=== PATIENT | female | born 1980 | race Caucasian/White ===

== ENCOUNTER → 2016-04-21 | Outpatient (CLI) | payer OTHER ==
[~2016-04-21] MED LIST: AMOX500T PO; FERR325T PO; IBUP-232 PO; MACR100C2 PO; METH10TA PO; OXYC1TAB63 PO; OXYC30TA PO; SENN1TAB PO; XANA1TAB2 PO; ZANTTAB PO; [UNRECOGNIZED DRUG - CODE] PO
== END ==
LOC: HPND 09:15
PROVIDERS: ATTEND Obstetrics & Gynecology
DX: O09.522 Supervision of elderly multigravida, second trimester (principal); O09.32 Supervision of pregnancy with insufficient antenatal care, second trimester
CPT/HCPCS: 76811

== ENCOUNTER 2016-06-07 17:14 | Emergency (ER) | payer OTHER ==
[~2016-06-07 17:14] MED LIST changes: -FERR325T PO; -IBUP-232 PO; -MACR100C2 PO; -OXYC1TAB63 PO; -SENN1TAB PO; -[UNRECOGNIZED DRUG - CODE] PO
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
== END 2016-06-07 19:15 | disposition home or self-care (01) ==
LOC: HOBED 17:14
DX: O47.9 False labor, unspecified (principal); E11.9 Type 2 diabetes mellitus without complications; Z3A.39 39 weeks gestation of pregnancy
CPT/HCPCS: 82948; 84112; 99284

== ENCOUNTER 2016-06-10 06:06 | Inpatient (IN) | payer OTHER ==
[2016-06-10] VITALS (116 sets, daily range): BP systolic 89–149; BP diastolic 30–92; PULSE 58–130; RESP 1–20; TEMP 97.2–98.7; O2SAT 98–100
[~2016-06-10] VITALS: Ht 162.6 cm; Wt 93.9 kg
[2016-06-10 07:39] LABS: AUTOMATED NEUTROPHIL # 3.9 TH/MM3 (1.8-7.7); BASOPHIL % 0.3 % (0.0-2.0); EOSINOPHIL # 0.1 TH/MM3 (0-0.4); EOSINOPHIL % 0.8 % (0.0-4.0); HEMATOCRIT 29.4 % (35.0-46.0); LYMPH % 31.3 % (9.0-44.0); LYMPHOCYTE # 2.1 TH/MM3 (1.0-4.8); MEAN CELL VOLUME 79.1 FL (80.0-100.0); MEAN CORPUSCULAR HEMOGLOBIN 26.5 PG (27.0-34.0); MEAN CORPUSCULAR HGB CONC 33.4 % (32.0-36.0); NEUT % 59.6 % (16.0-70.0); PLATELET COUNT 90 TH/MM3 (150-450); RED BLOOD COUNT 3.72 MIL/MM3 (4.00-5.30); WHITE BLOOD COUNT 6.6 TH/MM3 (4.0-11.0)
[2016-06-10 07:42] LABS: HEMO FLAGS AUTO DIFF
[2016-06-10] MEDS ORDERED: [UNRECOGNIZED DRUG - CODE] PO (07:51)
[2016-06-10 08:22] LABS: BACTERIA, URINE MOD /hpf; BLOOD, URINE MOD (NEG); CALCIUM OXALATE CRYSTALS,URINE FEW /hpf; COMMENT (UR) CULTURE INDICATED; CULTURE IF INDICATED CULTURE INDICATED; GLUCOSE,URINE NEG (NEG); GRANULAR CAST, URINE 5 /lpf; KETONE, URINE TRACE mg/dL (NEG); MUCUS URINE MANY /lpf (OCC); NITRITE,URINE NEG (NEG); SQUAMOUS EPITHELIAL CELL URINE 23 /hpf (0-5); URINE COLOR DARK-YELLOW (YELLW/STRAW)
[2016-06-10 08:29] LABS: PLATELET ESTIMATE SMEAR LOW (NORMAL); PLATELET MORPHOLOGY ENLARGED (NORMAL); SCAN/DIFF AUTO DIFF CONFIRMED
[2016-06-10] MEDS ORDERED: LACTATED RINGER'S 1000 ML INJ 1,000 ML IV PRN (08:29)
[2016-06-10] MEDS ORDERED: LIDOCAINE HCL 1% 50 ML VIAL I-DERMAL PRN (08:30)
[2016-06-10] MEDS ORDERED: OXYTOCIN 30 UNITS-500ML PREMIX 500 ML IV ONE (08:30)
[2016-06-10] MEDS ORDERED: CITRIC ACID-SODIUM CITRATE LIQ 30 ML UDC PO SCH (08:30)
[2016-06-10] MEDS ORDERED: PENICILLIN G POTASSIUM INJ 5,000,000 UNITS in SODIUM CHLORIDE 0.9% INJ 100 ML IV ONE (08:30)
[2016-06-10] MEDS ORDERED: SODIUM CHLORID 0.9% 500 ML INJ 500 ML IV PRN (08:30)
[2016-06-10] MEDS ORDERED: LIDOCAINE HCL 1% 50 ML VIAL INFIL PRN (08:30)
[2016-06-10] MEDS ORDERED: OXYTOCIN 30 UNITS-500ML PREMIX 500 ML IV SCH (08:30)
[2016-06-10] MEDS ORDERED: MINERAL OIL 10 ML VIAL TOPICAL PRN (08:30)
--- NOTE | 2016-06-10 08:48 | HHI.HP ---
HPI Chief Complaint induction of labor Date Seen: June 10, 2016 (Bolivar Carreno MD R2) Travel History International Travel<30 Days: No Contact w/Intl Traveler<30Days: No (Bolivar Carreno MD R2) History of Present Illness HPI Ms. Salinas is a 35-year-old at 39 6/7 weeks (LUIS 06/11/2016) presents for induction of labor. Patient denies symptoms such as headache, visual changes, shortness of breath, chest pain, lack of movement, vaginal bleeding, rupture of membranes. Review of records: GBS positive. Concern for gestational diabetes; patient failed one-hour glucose testing; did not obtain 3 hour testing. Patient on chronic opiate pain control during : Oxycodone 15 mg 3 times a day, methadone 20 mg daily. Patient also on Xanax 1 mg daily. Patient evaluated by MFM; recommended delivery between 3940 weeks. ultrasounds: US at 23 weeks' demonstrated head circumference below 5th percentile. Last BPP 11/1606/08/2016. Patient states that she has previously been diagnosed with colonic with diabetes prior to ; she is not on any current medications. Para: 2 : 5 : 2 (Bolivar Carreno MD R2) History Past Medical History Narrative Medical Chronic pain secondary to degenerative disc disease and arthritis on chronic opiate therapy- patient takes 15 mg oxycodone 3 times a day, 20 mg methadone daily Prior substance abuse Gestational diabetes with current gestation vs chronic diabetes Benzodiazepine usage-1 mg Xanax at night (Bolivar Carreno MD R2) Obstetric History Obstetric History 2 vaginal deliveries at 37 weeks gestation 19 and 22 years ago Patient reports prior gestational complications of preeclampsia and gestational diabetes (Bolivar Carreno MD R2) Past Surgical History Narrative Surgical [place] teeth removal (Bolivar Carreno MD R2) Family History Narrative Family History MotherCVA (Bolivar Carreno MD R2) Social History Narrative Social History Patient reports cocaine addiction 10 years ago that she has not used recently Alcohol Use: No Tobacco Use: No Substance Abuse: No (Bolivar Carreno MD R2) Allergies-Medications (Allergen,Severity, Reaction): Coded Allergies: No Known Allergies (Verified , 06/10/16) Uncoded Allergies: NONE (Allergy, Unknown, 10/15/02) Home Meds Reported Medications Vit W/ Docusate-Iron (Inatal Advance)1 Tab Tab1 Tab PO DAILY 06/10/16 Alprazolam (Xanax)1 Mg Tab1 Mg PO BID PRN (ANXIETY) 30 Days Ref 0 04/14/16 Methadone 10 Mg Tab10 Mg PO DAILY Ref 0 02/16/16 Oxycodone 30 Mg Tab30 Mg PO Q6H PRN (PAIN) Ref 0 02/16/16 Ranitidine (Zantac 150 Maximum Strength)150 Mg [id number] Mg PO BID 02/16/16 Discontinued Scripts Amoxicillin 500 Mg [id number] Mg PO TID #21 TAB Ref 0 Prov:Varun Hill MD 05/26/16 Review of Systems General / Constitutional: No: Fever, Chills HENT: No: Headaches Cardiovascular: No: Chest Pain or Discomfort Respiratory: No: Short of Breath Gastrointestinal: No: Nausea, Vomiting, Abdominal Pain Genitourinary: No: Dysuria (Bolivar Carreno MD R2) Physical Exam Vital Signs Date Time Temp Pulse Resp B/P Pulse Ox O2 Delivery O2 Flow Rate FiO2 06/10/16 07:30 98.4 06/10/16 07:30 73 124/70 06/10/16 07:30 19 Narrative GENERAL: Well-nourished, well-developed patient. SKIN: Warm and dry. HEAD: Normocephalic and atraumatic. EYES: No scleral icterus. No injection or drainage. ENT: No nasal drainage noted. Mucous membranes pink. Airway patent. NECK: Supple, trachea midline. No JVD. CARDIOVASCULAR: Regular rate and rhythm without murmurs, gallops, or rubs. RESPIRATORY: CTA B, normal rate ABDOMEN/GI: Abdomen soft, non-tender, bowel sounds present, no rebound, no guarding Gravid EXTREMITIES: No cyanosis or edema. NEUROLOGICAL: Awake and alert. Motor and sensory function grossly within normal limits. GENITOURINARY: External Genitalia: intact and normal in appearance Cervix: Dilatation: 3-4cm Effacement: 50-60% Station: soft Presentation: Vertex Membranes: Intact Uterine Contractions: Irritability FHT's: Category: 1 Baseline: 130 Reactive: Y Variability: Moderate Decels: None (Bolivar Carreno MD R2) Data Data Vital Signs Reviewed: Yes Orders Code Status (06/10/16 07:11) Vital Signs (Adult) .Per protocol (06/10/16 07:11) Heart (06/10/16 07:11) Amnioinfusion (06/10/16 07:11) Urinary Catheter Management .ONCE (06/10/16 07:11) Complete Blood Count With Diff (06/10/16 07:11) Hold Clot (06/10/16 07:11) Abo/Rh Blood Type (06/10/16 07:11) Urinalysis - C+S If Indicated (06/10/16 07:11) Resp Oxygen Non Rebreathe Mask (06/10/16 ) ^ Epidural / Intrathecal Infus (06/10/16 07:11) Specimen To Be Collected PRN (06/10/16 07:11) ^ Non Stress Test (06/10/16 07:19) Response To Medication .Post New Med Administration, Reaction (06/10/16 07:19) ^ Discontinue Medication (06/10/16 07:19) Urine Culture (06/10/16 06:40) Labs Laboratory Tests Test 06/10/16 06:40 White Blood Count 6.6 Red Blood Count 3.72 Hemoglobin 9.8 Hematocrit 29.4 Mean Corpuscular Volume 79.1 Mean Corpuscular Hemoglobin 26.5 Mean Corpuscular Hemoglobin 33.4 Concent Red Cell Distribution Width 14.0 Platelet Count 90 Mean Platelet Volume 11.3 Neutrophils (%) (Auto) 59.6 Lymphocytes (%) (Auto) 31.3 Monocytes (%) (Auto) 8.0 Eosinophils (%) (Auto) 0.8 Basophils (%) (Auto) 0.3 Neutrophils # (Auto) 3.9 Lymphocytes # (Auto) 2.1 Monocytes # (Auto) 0.5 Eosinophils # (Auto) 0.1 Basophils # (Auto) 0.0 CBC Comment AUTO DIFF Differential Comment AUTO DIFF CONFIRMED Platelet Estimate LOW Platelet Morphology Comment ENLARGED Urine Color DARK-YELLOW Urine Turbidity CLOUDY Urine pH 6.0 Urine Specific [place] 1.045 Urine Protein 30 Urine Glucose (UA) NEG Urine Ketones TRACE Urine Occult Blood MOD Urine Nitrite NEG Urine Bilirubin NEG Urine Urobilinogen 2.0 Urine Leukocyte Esterase MOD Urine RBC 3 Urine WBC 8 Urine Squamous Epithelial 23 Cells Urine Calcium Oxalate Crystals FEW Urine Bacteria MOD Urine Granular Casts 5 Urine Mucus MANY Microscopic Urinalysis Comment CULTURE INDICATED Blood Type O POSITIVE Blood Bank Comment Band and Hold Date/Time Procedure Status Source Growth 06/10/16 06:40 Urine Culture Received Urine Clean Catch Pending (Bolivar Carreno MD R2) Assessment/Plan Problem List: (1) 39 weeks gestation of (2) Chronic prescription opiate use Assessment and Plan 35-year-old at 39 6/7 weeks (LUIS 06/11/2016) presents for induction of labor -Chronic opiate and benzodiazepine use during -Mild thrombocytopenia with platelets less than 100 K during -Concern for gestational diabetes/chronic diabetes -GBS positive -Category 1 rhythm -Cervix %/-3 Plan: -Will initiate induction of labor with Pitocin -We'll obtain CBC/UA/blood typing -Will initiate GBS prophylaxis -We'll continue patient's chronic opiate medications/benzodiazepine to avoid withdrawal and notify providers (Bolivar Carreno MD R2) Collaborating MD Comments agree with management plan GBS prophylaxis followed by AROM/pitocin (Millie Chiang MD) Bolivar Carreno MD R2 June 10, 2016 08:48 Millie Chiang MD June 10, 2016 08:54
[2016-06-10] MEDS ORDERED: SODIUM CHLOR 0.9% 1000 ML INJ 1,000 ML IV PRN (08:49)
[2016-06-10] MEDS: LACTATED RINGER'S 1000 ML INJ 1,000 ML IV SCH ×2 (08:59→16:52)
--- NOTE | 2016-06-10 11:25 | PD.LABORPN ---
Subjective Subjective AROM clear , cx 4 50./-3 / vtx FSE inserted , could not get the IUPC in begin sep Objective Vital Signs Vital Signs Date Time Temp Pulse Resp B/P Pulse Ox O2 Delivery O2 Flow Rate FiO2 06/10/16 11:00 72 124/66 06/10/16 10:30 70 105/51 06/10/16 10:00 77 118/66 06/10/16 09:30 132/71 06/10/16 09:30 69 06/10/16 09:27 18 06/10/16 08:30 18 06/10/16 07:30 98.4 06/10/16 07:30 73 124/70 06/10/16 07:30 19 Objective Pelvic Exam: Cervix: [-] Dilatation: [-4] Effacement: [-50] Station: [-3] Presentation: [vtx-] Membranes: ruptured] Uterine Contractions: [-irreg] FHT's: Category: [1-] Baseline: [144-] Reactive: [-yes] Variability: [mod-] Assessment/Plan Problem List: (1) 39 weeks gestation of (2) Chronic prescription opiate use Assessment and Plan continue labor management ., sep prn Alonzo Garza II, MD June 10, 2016 11:25
[2016-06-10] MEDS: PENICILLIN G POTASSIUM INJ 2,500,000 UNITS in SODIUM CHLORIDE 0.9% INJ 100 ML IV SCH ×2 (12:45→16:19)
[2016-06-10] MEDS ORDERED: fentaNYL 2MCG-BUPIV 0.125% INJ 100 ML ONE (15:23)
[2016-06-10] MEDS ORDERED: ePHEDrine/NS 25 MG/5 ML SYR ONE (15:23)
[2016-06-10] MEDS ORDERED: ePHEDrine/NS 25 MG/5 ML SYR IV PRN (16:30)
[2016-06-10] MEDS ORDERED: DO NOT ADMINISTER ANTICOAGULANTS PRN (16:30)
[2016-06-10] MEDS ORDERED: NO SYSTEM NARCOTICS PRN (16:30)
[2016-06-10 16:48] LABS: AMPHETAMINE, URINE NEG (NEG); BARBITURATES, URINE NEG (NEG); COCAINE, URINE NEG (NEG)
[2016-06-10 20:59] LABS: BLOOD GAS BASE EXCESS -0.3 mmol/L (-2-2); BLOOD GAS O2 HGB SATURATION 3 % (90-100); CORD BLOOD GAS HCO3 26 mmol/L (21-29); CORD BLOOD GAS PCO2 65 mmHG (34-78); CORD BLOOD GAS PH 7.24 (7.14-7.42); CORD BLOOD GAS PO2 4 mmHG (3.0-40.0); DRAW SITE CORD BLOOD; STAT YES
[2016-06-10] MEDS ORDERED: SODIUM CHLORIDE 0.9% FLUSH 10 ML FLUSH IV FLUSH PRN (21:30)
[2016-06-10] MEDS ORDERED: oxyCODONE/ACETAMINOPHEN 5 MG/325 MG TAB PO PRN (21:30)
[2016-06-10] MEDS ORDERED: ZOLPIDEM TARTRATE 5 MG TAB PO PRN (21:30)
[2016-06-10] MEDS ORDERED: BENZOCAINE 20% TOPICAL SPRAY 60 ML CAN TOPICAL PRN (21:30)
[2016-06-10] MEDS ORDERED: WITCH HAZEL 50%/GLYCERIN 12.5% 40 PAD JAR TOPICAL PRN (21:30)
[2016-06-10] MEDS ORDERED: ALUMINUM/MAGNESIUM/SIMETH 30 ML CUP PO PRN (21:30)
[2016-06-10] MEDS ORDERED: ACETAMINOPHEN 325 MG TAB PO PRN (21:30)
[2016-06-10] MEDS ORDERED: ONDANSETRON ODT 4 MG TAB PO PRN (21:30)
--- NOTE | 2016-06-10 21:33 | PD.OB.DELI ---
Anesthesia: Epidural Episiotomy: Midline Vaginal Delivery: Spontaneous Presentation: Occiput anterior Nuchal Cord: x1 Delayed cord clamping (45 sec): No Shoulder Dystocia: Suprapubic pressure given, Layne maneuver done, Wood's screw maneuver done, Other : Male One Minute : 2 Five Minute : 5 Ten Minute : 8 Weight: 4085 gm [9 lb] Placenta: Spontaneous delivery, Intact Laceration: Episiotomy, 4 deg, Involving anal sphincter, Into rectum Repair: Chromic running, Vicryl interrupted, Vicryl running Additional Information this pt is a multipara at 39-40 wks with gestational diabetes who in the second stage of labor pushed only a brief amount of time, however was really having a difficult time getting the head to completely deliver out on the perineum. And once that the head did deliver, it was very obvious that there was a shoulder dystocia, with left shoulder being underneath the symphysis ,Mc Campo maneuver used and suprapubic pressure given by the nurses, initial traction on the head of was unsuccessful and was not severe was a fairly medium to moderate tension, when that was unsuccessful, I cut a second-degree episiotomy and used my of right hand to reach for the posterior arm to try and deliver that . I was able to get to the posterior arm and move the arm and posterior shoulder forward toward the perineum approximally 2 centimeters and once that was done I tried a another traction on the head gently rolling the shoulders to the patient's left in a wood screw maneuver to pull the anterior shoulder, that was behind the symphysis, off the vertical midline and then it delivered under the symphysis with suprapubic pressure delivered at that time and once the anterior shoulder deliver the baby delivered very easily. 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 Adequate and complete repair noted, EBL 300 cc Alonzo Garza II, MD June 10, 2016 21:33
[2016-06-11] VITALS (53 sets, daily range): BP systolic 94–135; BP diastolic 47–73; PULSE 72–112; RESP 16–19; TEMP 98–98.8; O2SAT 99–100
[2016-06-11] MEDS: LACTATED RINGER'S 1000 ML INJ 1,000 ML IV SCH (00:29)
[2016-06-11 01:11] LABS: REVIEW FLAG FINAL
[2016-06-11] MEDS: DOCUSATE SODIUM 50 MG/SENNA 8.6 MG TAB PO PRN ×2 (07:37→20:17)
[2016-06-11] MEDS ORDERED: SODIUM CHLORIDE 0.9% FLUSH 10 ML FLUSH IV FLUSH SCH (09:00)
[2016-06-11] MEDS ORDERED: oxyCODONE/ACETAMINOPHEN 5 MG/325 MG TAB PO PRN (09:00)
[2016-06-11] MEDS: IBUPROFEN 600 MG TAB PO PRN ×2 (09:20→16:56)
--- NOTE | 2016-06-11 09:25 | HHI.OB ---
Subjective Post Day: 1 Remarks Ms. Salinas is a 35 yo who is PPD1 from induced vaginal delivery (06/10 at 5) . Patient afebrile with stable VS (occ mild tachycardia) overnight. Per review of delivery records, delivery complicated by shoulder dystocia; episiotomy required for delivery of . Hgb 6. Patient reports fatigue but that she feels better as she is receiving blood transfusion. Patient has not ambulated since delivery. Patient has catheter in place. Patient reports a large amount of abdominal pain. Objective Vitals/I&O Vital Signs Date Time Temp Pulse Resp B/P Pulse Ox O2 Delivery O2 Flow Rate FiO2 06/11/16 08:30 18 06/11/16 08:00 18 06/11/16 07:30 103 100 06/11/16 07:25 97 100 06/11/16 07:20 99 100 06/11/16 07:15 95 100 06/11/16 07:15 98.7 18 06/11/16 07:10 100 06/11/16 07:10 100 06/11/16 07:05 100 06/11/16 07:05 101 06/11/16 07:02 110/68 06/11/16 07:02 95 06/11/16 07:02 98.4 103 18 110/68 100 06/11/16 07:00 105 99 06/11/16 06:55 101 99 06/11/16 06:47 98.8 100 18 124/68 99 06/11/16 06:46 124/68 06/11/16 06:45 18 06/11/16 06:40 103 100 06/11/16 06:35 98.6 109 18 107/73 100 06/11/16 06:35 107/73 06/11/16 06:25 103 100 06/11/16 06:20 104 100 06/11/16 06:15 100 100 06/11/16 06:10 92 100 06/11/16 06:05 95 100 06/11/16 06:00 97 100 06/11/16 05:50 100 100 06/11/16 05:48 18 06/11/16 05:48 98.0 06/11/16 05:47 99 127/66 06/11/16 05:45 100 06/11/16 05:45 18 06/11/16 05:40 100 17 05:40 102 17 05:30 124/62 17 04:40 112 100 17 04:35 96 100 06/11/16 04:30 96 100 17 04:25 98 100 06/11/16 04:20 103 100 06/11/16 04:15 18 06/11/16 04:15 104 100 06/11/16 04:13 97 110/60 06/11/16 04:12 98.2 98 18 110/60 100 06/11/16 04:10 107 100 06/11/16 04:05 111 100 06/11/16 03:55 109 100 06/11/16 03:45 98.4 18 06/11/16 03:38 98 116/62 06/11/16 03:38 98.4 101 18 116/62 99 06/11/16 03:00 18 06/11/16 02:59 105 135/61 06/11/16 01:06 112 106/47 06/11/16 00:03 90 18 107/54 06/11/16 00:00 95 100 06/11/16 00:00 95 94/53 06/10/16 23:55 100 06/10/16 23:55 105 06/10/16 23:49 18 06/10/16 23:45 91 105/54 100 06/10/16 23:41 18 06/10/16 23:40 99 100 06/10/16 23:35 114 100 06/10/16 23:30 91 116/57 100 06/10/16 23:27 18 06/10/16 23:25 113 100 17 23:15 89 115/63 100 06/10/16 23:10 89 100 06/10/16 23:05 108 100 06/10/16 23:03 97.8 06/10/16 23:01 18 06/10/16 23:00 94 100 06/10/16 23:00 101/66 17 22:57 74 106/45 17 22:55 100 17 22:50 86 98 17 22:47 18 17 22:45 86 98 06/10/16 22:45 101/46 06/10/16 22:42 79 102/48 06/10/16 22:41 18 06/10/16 22:40 86 101/45 100 06/10/16 22:30 82 18 89/45 100 06/10/16 22:29 82 89/49 06/10/16 22:25 77 100 06/10/16 22:23 97/46 06/10/16 22:15 97/49 06/10/16 22:10 100 06/10/16 22:08 18 06/10/16 22:07 74 92/45 06/10/16 22:05 89/41 06/10/16 22:05 97.5 06/10/16 22:00 74 97/42 06/10/16 21:56 18 06/10/16 21:55 94 99 06/10/16 21:45 103 103/59 06/10/16 21:40 109 100 06/10/16 21:35 77 100 06/10/16 21:33 1 06/10/16 21:33 18 06/10/16 21:31 78 107/35 06/10/16 21:29 97.2 06/10/16 21:29 18 06/10/16 21:25 100 06/10/16 21:25 58 06/10/16 21:23 108/48 06/10/16 21:15 18 06/10/16 21:05 78 97/45 06/10/16 20:55 20 06/10/16 20:54 72 103/52 06/10/16 20:53 97.9 06/10/16 19:40 76 06/10/16 19:30 121/65 06/10/16 19:10 67 06/10/16 19:06 98.0 18 06/10/16 19:05 74 06/10/16 19:00 116/61 06/10/16 19:00 62 06/10/16 18:35 77 06/10/16 18:31 68 94/47 06/10/16 18:30 69 06/10/16 18:10 69 06/10/16 18:05 69 06/10/16 18:00 66 116/77 06/10/16 18:00 62 06/10/16 17:55 68 06/10/16 17:40 68 06/10/16 17:35 70 5/4/17 17:30 98.4 18 06/10/16 17:30 61 06/10/16 17:30 66 103/52 06/10/16 17:25 71 06/10/16 17:20 74 06/10/16 17:15 65 06/10/16 17:15 67 107/56 06/10/16 17:10 68 06/10/16 17:00 78 119/67 06/10/16 17:00 65 06/10/16 16:55 71 06/10/16 16:45 71 120/60 06/10/16 16:45 73 06/10/16 16:40 74 06/10/16 16:35 80 06/10/16 16:31 76 116/57 06/10/16 16:30 18 06/10/16 16:30 78 06/10/16 16:25 88 06/10/16 16:20 80 06/10/16 16:16 79 103/49 06/10/16 16:15 75 06/10/16 16:12 130 105/30 06/10/16 16:10 82 115/62 06/10/16 16:10 82 06/10/16 16:07 79 103/43 06/10/16 16:05 73 06/10/16 16:03 85 116/72 06/10/16 16:01 69 101/55 06/10/16 16:00 79 06/10/16 16:00 18 06/10/16 15:57 94 89/74 06/10/16 15:55 79 06/10/16 15:54 87 120/55 06/10/16 15:51 82 128/72 06/10/16 15:50 86 06/10/16 15:48 84 124/61 06/10/16 15:45 76 06/10/16 15:45 94 127/59 06/10/16 15:42 109 119/76 06/10/16 15:40 87 06/10/16 15:39 92 119/67 06/10/16 15:36 95 133/81 06/10/16 15:35 90 06/10/16 15:33 91 124/64 06/10/16 15:30 98.4 06/10/16 15:30 20 06/10/16 15:30 84 109/72 5/4/17 15:30 18 06/10/16 15:10 20 06/10/16 15:00 94 127/53 06/10/16 14:30 84 149/92 06/10/16 14:30 19 06/10/16 14:00 70 135/75 06/10/16 13:30 20 06/10/16 13:30 98.7 06/10/16 13:00 78 134/79 06/10/16 13:00 78 134/79 06/10/16 13:00 78 134/79 06/10/16 12:30 18 06/10/16 12:30 78 102/58 06/10/16 12:00 82 123/67 06/10/16 11:30 97.5 06/10/16 11:30 82 139/81 06/10/16 11:29 20 06/10/16 11:00 72 124/66 06/10/16 10:30 18 06/10/16 10:30 70 105/51 06/10/16 10:00 77 118/66 06/10/16 09:30 132/71 06/10/16 09:30 69 06/10/16 09:27 18 Objective Remarks GENERAL: Well-nourished, well-developed patient. CARDIOVASCULAR: Regular rate and rhythm without murmurs. Normal perfusion RESPIRATORY:CTAB, normal rate ABDOMEN/GI: Abdomen soft, non-tender. Fundus: Firm, non-tender at umbilicus. GENITOURINARY: Light to moderate bleeding. Catheter in place EXTREMITIES: No cyanosis or edema, non-tender, without signs of DVT. Medications and IVs Current Medications Medications (Trade) Dose Ordered Sig/Bri Route Start Time Stop Time Status Last Admin Lactated Ringer's 1,000 ml @ 125 mls/hr Q8H IV 06/10/16 08:29 06/11/16 00:29 Lactated Ringer's 1,000 ml @ 3,000 mls/hr Q20M PRN IV 06/10/16 08:29 06/10/16 16:52 Sodium Chloride 1,000 ml @ 100 mls/hr Q10H PRN IV 06/10/16 08:49 (Pfizerpen-G Inj/ NS Inj) 100 ml @ 200 mls/hr Q4H IV 06/10/16 12:30 06/10/16 16:19 Mineral Oil 10 ml 10 ml UNSCH PRN TOPICAL 06/10/16 08:30 (Pitocin 30 Units-NS 500 ml Premix) 500 ml @ 0 mls/hr TITRATE IV 06/10/16 08:30 06/10/16 09:34 Miscellaneous Information No systemic narcotics to be given except... UNSCH PRN .XX 06/10/16 16:30 06/11/16 16:29 Miscellaneous Information DO NOT ADMINISTER ANY ANTICOAGUL... UNSCH PRN .XX 06/10/16 16:30 06/11/16 16:29 (ePHEDrine/NS 25 MG/5 ML SYR) 10 mg UNSCH PRN IV 06/10/16 16:30 06/11/16 16:29 (NS Flush) 2 ml BID IV FLUSH 06/11/16 09:00 (NS Flush) 2 ml UNSCH PRN IV FLUSH 06/10/16 21:30 (Motrin) 600 mg Q6H PRN PO 06/10/16 21:30 (Americaine 20% Top Spr) 1 spray Q4H PRN TOPICAL 06/10/16 21:30 06/11/16 03:14 (Tucks Pads) 1 applic QID PRN TOPICAL 06/10/16 21:30 06/11/16 03:14 (Debi-Colace) 2 tab Q12H PRN PO 06/10/16 21:30 06/11/16 07:37 (Ambien) 5 mg HS PRN PO 06/10/16 21:30 (Mag-Al Plus Susp Liq) 15 ml Q8H PRN PO 06/10/16 21:30 (Zofran Odt) 4 mg Q6H PRN PO 06/10/16 21:30 (fentaNYL INJ) 50 mcg Q3HR PRN IV PUSH 06/11/16 08:15 (Percocet 5-325 Mg) 1 tab Q4H PRN PO 06/11/16 09:00 (Percocet 5-325 Mg) 2 tab Q4H PRN PO 06/11/16 10:00 Assessment/Plan Problem List: (1) 39 weeks gestation of (2) Chronic prescription opiate use (3) care and examination Assessment and Plan 35 yo who is PPD1 from induced vaginal delivery (06/10 at 2034) Routine care Continue to monitor vital signs, vaginal bleeding Encourage ambulation When necessary Motrin/Percocet Stool softener as needed Anemia Impression: Hgb 9.8 prior to delivery. Patient with mild thrombocytopenia. Episiotomy required for delivery. Post delivery Hgb 6 -continue transfusion of 2 U pRBC -Plan to check post transfusion H&H Urinary function Impression: Patient with catheter in place. Urine on admission suggestive of possible UTI. -Plan to remove catheter posttransfusion and monitor output -Follow urine culture Thrombocytopenia Impression: Mild, PLT count 90k. -Continue to monitor vaginal bleeding Chronic opiate/benzodiazepine therapy Impression: nursery staff aware. UDS+ for benzodiazepines -Will plan to treat pain accordingly and continue patient's benzodiazepine Discharge Planning anticipate discharge tomorrow Bolivar Carreno MD R2 June 11, 2016 09:25
[2016-06-11] MEDS: oxyCODONE/ACETAMINOPHEN 5 MG/325 MG TAB PO PRN ×3 (09:26→20:17)
[2016-06-11] MEDS ORDERED: LIDOCAINE 2% JELLY 30 ML TUBE TOPICAL PRN (10:00)
[2016-06-11 16:17] LABS: HEMATOCRIT 25.6 % (35.0-46.0)
[2016-06-11 16:19] LABS: REVIEW FLAG FINAL
[2016-06-12] MEDS: IBUPROFEN 600 MG TAB PO PRN ×3 (00:37→18:33)
[2016-06-12] MEDS: oxyCODONE/ACETAMINOPHEN 5 MG/325 MG TAB PO PRN ×5 (00:37→21:54)
[2016-06-12] MEDS: DOCUSATE SODIUM 50 MG/SENNA 8.6 MG TAB PO PRN (07:49)
[2016-06-12 07:50] VITALS: BP 116/80; PULSE 76; RESP 18; TEMP 98.3
--- NOTE | 2016-06-12 09:01 | HHI.OB ---
Subjective Post Day: 2 Remarks Ms. Salinas is a 35 yo who is PPD2 from induced vaginal delivery (06/10 at 2034) . Patient afebrile with stable VS overnight. Patient reports that she is pumping breast milk at this time and requests bus info consultant assistance. Patient reports continued dizziness when standing. Patient states her pain is controlled. Patient passing gas. Patient reports that her murray was removed last night; she states that she is concerned regarding possibly having urinary tract infection. (Bolivar Carreno MD R2) Objective Vitals/I&O Vital Signs Date Time Temp Pulse Resp B/P Pulse Ox O2 Delivery O2 Flow Rate FiO2 06/11/16 19:50 98.4 72 16 125/70 06/11/16 11:15 98.5 95 18 06/11/16 11:15 120/73 06/11/16 09:52 98.6 06/11/16 09:51 19 06/11/16 09:50 98.6 94 19 120/58 100 06/11/16 09:48 94 120/58 06/11/16 09:30 19 Objective Remarks GENERAL: Well-nourished, well-developed patient. CARDIOVASCULAR: Regular rate and rhythm without murmurs. Normal perfusion RESPIRATORY:CTAB, normal rate ABDOMEN/GI: Abdomen soft, non-tender. Fundus: Firm, non-tender at umbilicus. GENITOURINARY: Light to moderate bleeding. EXTREMITIES: No cyanosis or edema, non-tender, without signs of DVT. Medications and IVs Current Medications Medications (Trade) Dose Ordered Sig/Bri Route Start Time Stop Time Status Last Admin Lactated Ringer's 1,000 ml @ 125 mls/hr Q8H IV 06/10/16 08:29 06/11/16 00:29 Lactated Ringer's 1,000 ml @ 3,000 mls/hr Q20M PRN IV 06/10/16 08:29 06/10/16 16:52 Sodium Chloride 1,000 ml @ 100 mls/hr Q10H PRN IV 06/10/16 08:49 (Pfizerpen-G Inj/ NS Inj) 100 ml @ 200 mls/hr Q4H IV 06/10/16 12:30 06/10/16 16:19 Mineral Oil 10 ml 10 ml UNSCH PRN TOPICAL 06/10/16 08:30 (Pitocin 30 Units-NS 500 ml Premix) 500 ml @ 0 mls/hr TITRATE IV 06/10/16 08:30 06/10/16 09:34 (NS Flush) 2 ml BID IV FLUSH 06/11/16 09:00 (NS Flush) 2 ml UNSCH PRN IV FLUSH 06/10/16 21:30 (Motrin) 600 mg Q6H PRN PO 06/10/16 21:30 06/12/16 00:37 (Americaine 20% Top Spr) 1 spray Q4H PRN TOPICAL 06/10/16 21:30 06/11/16 03:14 (Tucks Pads) 1 applic QID PRN TOPICAL 06/10/16 21:30 06/11/16 03:14 (Debi-Colace) 2 tab Q12H PRN PO 06/10/16 21:30 06/12/16 07:49 (Ambien) 5 mg HS PRN PO 06/10/16 21:30 (Mag-Al Plus Susp Liq) 15 ml Q8H PRN PO 06/10/16 21:30 (Zofran Odt) 4 mg Q6H PRN PO 06/10/16 21:30 (fentaNYL INJ) 50 mcg Q3HR PRN IV PUSH 06/11/16 08:15 06/12/16 08:37 (Percocet 5-325 Mg) 1 tab Q4H PRN PO 06/11/16 09:00 (Percocet 5-325 Mg) 2 tab Q4H PRN PO 06/11/16 10:00 06/12/16 08:37 (Bolivar Carreno MD R2) Assessment/Plan Problem List: (1) 39 weeks gestation of (2) Chronic prescription opiate use (3) care and examination Assessment and Plan 35 yo who is PPD2 from induced vaginal delivery (06/10 at 5) Routine care Continue to monitor vital signs, vaginal bleeding Encourage ambulation When necessary Motrin/Percocet Stool softener as needed Anemia Impression: Hgb 9.8 prior to delivery. Patient with mild thrombocytopenia. Episiotomy required for delivery. Post delivery Hgb 6-> 8 after 2 U pRBC -Monitor vaginal bleeding at this time -Ferrous sulfate 325mg BID UTI Impression: Gram - silvio in urine culture. Patient recently with [facility] Catheter -Will start Macrobid 100mg BID x1 week Thrombocytopenia Impression: Mild, PLT count 90k. -Continue to monitor vaginal bleeding Chronic opiate/benzodiazepine therapy Impression: [facility] staff aware. UDS+ for benzodiazepines -continue patient's benzodiazepine Discharge Planning anticipate discharge tomorrow (Bolivar Carreno MD R2) Collaborating MD Comments Patient doing well, care has been reviewed. Stable following her blood transfusion (Millie Chiang MD) Bolivar Carreno MD R2 June 12, 2016 09:01 Millie Chiang MD June 12, 2016 09:19
[2016-06-12] MEDS: NITROFURANTOIN MONOHYD MACROCR 100 MG CAP PO SCH ×2 (11:36→18:33)
[2016-06-13] MEDS: IBUPROFEN 600 MG TAB PO PRN ×2 (01:00→07:55)
[2016-06-13] MEDS: oxyCODONE/ACETAMINOPHEN 5 MG/325 MG TAB PO PRN ×2 (04:13→07:55)
--- NOTE | 2016-06-13 08:02 | HHI.OB ---
Subjective Post Day: 3 Remarks Ms. Salinas is a 35 yo who is PPD3 from induced vaginal delivery (06/10 at 2034) . Patient afebrile with stable VS overnight. Patient states her pain is controlled. Patient reports having bowel movement; she states stool softener is helping. Patient does not report dysuria. Patient reports persistent vaginal bleeding since delivery [scant per nursing documentation]. No shortness of breath or leg swelling. Patient states she has pain management appointment next Tuesday. Patient agreeable to scheduling visit within the next several weeks. Objective Objective Remarks GENERAL: Well-nourished, well-developed patient. CARDIOVASCULAR: Regular rate and rhythm without murmurs. Normal perfusion RESPIRATORY:CTAB, normal rate ABDOMEN/GI: Abdomen soft, non-tender. Fundus: Firm, non-tender at umbilicus. GENITOURINARY: Light to moderate bleeding. EXTREMITIES: No cyanosis or edema, non-tender, without signs of DVT. Medications and IVs Current Medications Medications (Trade) Dose Ordered Sig/Bri Route Start Time Stop Time Status Last Admin Lactated Ringer's 1,000 ml @ 125 mls/hr Q8H IV 06/10/16 08:29 06/11/16 00:29 Lactated Ringer's 1,000 ml @ 3,000 mls/hr Q20M PRN IV 06/10/16 08:29 06/10/16 16:52 Sodium Chloride 1,000 ml @ 100 mls/hr Q10H PRN IV 06/10/16 08:49 (Pfizerpen-G Inj/ NS Inj) 100 ml @ 200 mls/hr Q4H IV 06/10/16 12:30 06/10/16 16:19 Mineral Oil 10 ml 10 ml UNSCH PRN TOPICAL 06/10/16 08:30 (Pitocin 30 Units-NS 500 ml Premix) 500 ml @ 0 mls/hr TITRATE IV 06/10/16 08:30 06/10/16 09:34 (NS Flush) 2 ml BID IV FLUSH 06/11/16 09:00 (NS Flush) 2 ml UNSCH PRN IV FLUSH 06/10/16 21:30 (Motrin) 600 mg Q6H PRN PO 06/10/16 21:30 06/13/16 01:00 (Americaine 20% Top Spr) 1 spray Q4H PRN TOPICAL 06/10/16 21:30 06/11/16 03:14 (Tucks Pads) 1 applic QID PRN TOPICAL 06/10/16 21:30 06/11/16 03:14 (Debi-Colace) 2 tab Q12H PRN PO 06/10/16 21:30 06/12/16 07:49 (Ambien) 5 mg HS PRN PO 06/10/16 21:30 (Mag-Al Plus Susp Liq) 15 ml Q8H PRN PO 06/10/16 21:30 (Zofran Odt) 4 mg Q6H PRN PO 06/10/16 21:30 (fentaNYL INJ) 50 mcg Q3HR PRN IV PUSH 06/11/16 08:15 06/13/16 04:13 (Percocet 5-325 Mg) 1 tab Q4H PRN PO 06/11/16 09:00 (Percocet 5-325 Mg) 2 tab Q4H PRN PO 06/11/16 10:00 06/13/16 04:13 (Macrobid) 100 mg BIDPC PO 06/12/16 10:00 06/12/16 18:33 Assessment/Plan Problem List: (1) Chronic prescription opiate use (2) care and examination Assessment and Plan 35 yo who is PPD3 from induced vaginal delivery (06/10 at 2034) Routine care Continue to monitor vital signs, vaginal bleeding Encourage ambulation When necessary Motrin/Percocet Stool softener as needed Anemia Impression: Hgb 9.8 prior to delivery. Patient with mild thrombocytopenia. Episiotomy required for delivery. Post delivery Hgb 6-> 8 after 2 U pRBC -Monitor vaginal bleeding at this time -Ferrous sulfate 325mg BID UTI Impression: Gram - silvio in urine culture. Patient recently with [facility] Catheter -Continue Macrobid 100mg BID x1 week Thrombocytopenia Impression: Mild, PLT count 90k. -Continue to monitor vaginal bleeding Chronic opiate/benzodiazepine therapy Impression: [facility] staff aware. UDS+ for benzodiazepines -Continue patient's home benzodiazepine Discharge Planning anticipate discharge today Bolivar Carreno MD R2 June 13, 2016 08:02
[2016-06-13] MEDS ORDERED: SENN1TAB PO (08:04)
[2016-06-13] MEDS ORDERED: IBUP-232 PO (08:04)
[2016-06-13] MEDS ORDERED: OXYC1TAB63 PO (08:04)
--- NOTE | 2016-06-13 08:04 | HHI.DCPOC ---
Discharge Care Plan Diagnosis: (1) Chronic prescription opiate use (2) care and examination Report Symptoms to Your Doctor -Temperate above 100.5 degrees -Redness, of incision or excessive or foul smelling drainage -Unusual pain or calf pain -Increased vaginal bleeding -Painful or difficulty urinating -Feelings of extreme sadness or anxiety after 2 weeks Goals to Promote Your Health * To prevent worsening of your condition and complications * To maintain your health at the optimal level Directions to Meet Your Goals Take your medications as prescribed Follow your dietary instruction Follow activity as directed Ensure plenty of rest for recovery Drink fluids for hydration Keep your appointments as scheduled Take your immunizations and boosters as scheduled If your symptoms worsen call your PCP, if no PCP go to Urgent Care Center or Emergency Room Smoking is Dangerous to Your Health. Avoid second hand smoke Call the 24-hour crisis hotline for domestic abuse at Bolivar Carreno MD R2 June 13, 2016 08:04
[2016-06-13] MEDS ORDERED: FERR325T PO (08:06)
[2016-06-13] MEDS: NITROFURANTOIN MONOHYD MACROCR 100 MG CAP PO SCH (08:11)
[2016-06-13] MEDS ORDERED: MACR100C2 PO (10:33)
[2016-06-13] MEDS ORDERED: DIPHTH/TETANUS/ACEL PERTUSSIS (BOOSTER) 0.5 ML VIAL/PFS IM ONE (16:00)
[2016-06-16 10:15] LABS: PHENCYCLIDINE URINE NEG (NEG)
[2016-06-16 10:16] LABS: BATH SALTS (MDPV) UR NEG (NEG); ECSTASY (MDMA) UR NEG (NEG); GABAPENTIN UR NEG (NEG); HEROIN (6-ACETYLMORPHINE) UR NEG (NEG); HYDROMORPHONE U NEG (NEG); K2 SPICE UR NEG (NEG)
[2016-06-16 10:20] LABS: OXYCODONE (PERCODAN) NEG (NEG)
[2016-06-16 10:21] LABS: OBMETHADONE UR POS (NEG)
== END 2016-06-13 11:27 | disposition home or self-care (01) | DRG 775 ==
LOC: H2EA 06:06 → H1EA 06-11 10:56
PROVIDERS: ADMIT Obstetrics & Gynecology Obstetrics; ATTEND Obstetrics & Gynecology Obstetrics
PROC: 0W8NXZZ Division of Female Perineum, External Approach (ICD-10-PCS; principal; 2016-06-10)
PROC: 10E0XZZ Delivery of Products of Conception, External Approach (ICD-10-PCS; 2016-06-10)
PROC: 0DQP0ZZ Repair Rectum, Open Approach (ICD-10-PCS; 2016-06-10)
PROC: 5A09357 Assistance with Respiratory Ventilation, Less than 24 Consecutive Hours, Continuous Positive Airway Pressure (ICD-10-PCS; 2016-06-10)
PROC: 30233N1 Transfusion of Nonautologous Red Blood Cells into Peripheral Vein, Percutaneous Approach (ICD-10-PCS; 2016-06-10)
DX: O24.429 Gestational diabetes mellitus in childbirth, unspecified control (principal); D69.6 Thrombocytopenia, unspecified; N39.0 Urinary tract infection, site not specified; O99.12 Other diseases of the blood and blood-forming organs and certain disorders involving the immune mechanism complicating childbirth; Z37.0 Single live birth; D64.9 Anemia, unspecified; O99.02 Anemia complicating childbirth; Z3A.39 39 weeks gestation of pregnancy; O66.0 Obstructed labor due to shoulder dystocia; O69.81X0 Labor and delivery complicated by cord around neck, without compression, not applicable or unspecified; O99.824 Streptococcus B carrier state complicating childbirth; Z79.891 Long term (current) use of opiate analgesic; O70.9 Perineal laceration during delivery, unspecified
CPT/HCPCS: 36430; 59025; 80307; 81001; 82805; 85014; 85018; 85025; 86850; 86900; 86901; 86920; 87077; 87086; 87186; 88307; 90715; G0481; J2540; J2590; J3010; J7040; J7120; P9016